=== PATIENT | female | born 1980 | race Two or more races ===

== ENCOUNTER → 2017-11-04 | Outpatient (CLI) | payer OTHER ==
[~2017-11-04] VITALS: Ht 152.4 cm; Wt 73.5 kg
[~2017-11-04] MED LIST: FLEXERIL 10 MG PO; FLEXERIL10 MG PO; KETO10TA2 PO; ORPH100T PO; VOLTAREM 50 MG PO; VOLTAREM PO; [UNRECOGNIZED DRUG - OTHER]
== END | disposition home or self-care (01) ==
LOC: PPHC 17:59
DX: N39.0 Urinary tract infection, site not specified (principal)

== ENCOUNTER → 2017-11-07 08:11 | Outpatient (CLI) | payer OTHER | END | disposition home or self-care (01) | LOC: LAB 08:11 | DX: R30.0 Dysuria (principal) ==

== ENCOUNTER → 2018-08-18 07:03 | Outpatient (CLI) | payer OTHER | END | disposition home or self-care (01) | LOC: LAB 07:03 | DX: Z00.00 Encounter for general adult medical examination without abnormal findings (principal) ==

== ENCOUNTER → 2019-07-02 | Outpatient (CLI) | payer OTHER | END | disposition home or self-care (01) | LOC: LAB 07:59 | DX: K86.89 Other specified diseases of pancreas (principal) ==

== ENCOUNTER 2019-07-15 09:00 | Outpatient (CLI) | payer OTHER | END 2019-07-15 11:12 | disposition home or self-care (01) | LOC: MAMO-SONO 09:00 | DX: Z12.31 Encounter for screening mammogram for malignant neoplasm of breast (principal); Z87.898 Personal history of other specified conditions; Z80.3 Family history of malignant neoplasm of breast ==

== ENCOUNTER 2019-07-29 07:58 | Outpatient (CLI) | payer OTHER | END 2019-07-31 10:55 | disposition home or self-care (01) | LOC: LAB 07:58 | DX: N95.1 Menopausal and female climacteric states (principal); E28.39 Other primary ovarian failure; E04.1 Nontoxic single thyroid nodule; E55.9 Vitamin D deficiency, unspecified; E78.00 Pure hypercholesterolemia, unspecified; Z11.4 Encounter for screening for human immunodeficiency virus [HIV] ==

== ENCOUNTER 2019-10-01 14:53 | Outpatient (CLI) | payer OTHER | END 2019-10-01 15:04 | disposition home or self-care (01) | LOC: LAB 14:53 | DX: R05 Cough (principal); J11.1 Influenza due to unidentified influenza virus with other respiratory manifestations; J06.9 Acute upper respiratory infection, unspecified ==

== ENCOUNTER 2019-10-21 18:54 | Emergency (ER) | payer OTHER ==
[~2019-10-21] VITALS: Ht 165.1 cm; Wt 72.6 kg
== END 2019-10-21 20:29 | disposition home or self-care (01) ==
LOC: ER 18:54
DX: M62.838 Other muscle spasm (principal)

== ENCOUNTER → 2019-11-04 06:34 | Outpatient (CLI) | payer OTHER | END | disposition home or self-care (01) | LOC: LAB 06:34 | DX: F32.2 Major depressive disorder, single episode, severe without psychotic features (principal) ==

== ENCOUNTER 2019-11-13 11:00 | Outpatient (CLI) | payer OTHER | END 2019-11-13 15:44 | disposition home or self-care (01) | LOC: LAB 11:00 | DX: R42 Dizziness and giddiness (principal); E78.49 Other hyperlipidemia; Z00.00 Encounter for general adult medical examination without abnormal findings; E55.9 Vitamin D deficiency, unspecified ==

== ENCOUNTER → 2019-12-04 | Outpatient (CLI) | payer OTHER | END | disposition home or self-care (01) | LOC: LAB 14:03 | DX: Z11.3 Encounter for screening for infections with a predominantly sexual mode of transmission (principal); Z28.3 Underimmunization status ==